=== PATIENT | female | born 1975 | race Caucasian/White ===

== ENCOUNTER 2017-04-15 17:39 | Emergency (ER) | payer MEDICAID, OTHER ==
[~2017-04-15] VITALS: Ht 147.3 cm; Wt 90.5 kg
[~2017-04-15 17:39] MED LIST: FERR240T9 PO; PREN-39 PO
[2017-04-15 18:29] VITALS: Ht 147.3 cm; Wt 90.5 kg
[2017-04-15] MEDS ORDERED: HYDROCODONE/APAP (5/325) TAB PO ONE (21:00)
--- NOTE | 2017-04-15 21:40 | ERD ---
ER Documentation Chief Complaint Date/Time DATE: 04/15/17 TIME: 21:37 Chief Complaint Left foot/leg pain & swelling when standing for long periods of times HPI 42-year-old female presents here to emergency department for complaints of left foot pain for months now, describes the pain as sharp pain, 6/10 scale, not better or worse with anything. Patient also started to have left lower leg swelling, With anything. Patient denies any numbness or tingling. Patient denies any deformity. Patient denies any trauma. ROS All systems reviewed and are negative except as per history of present illness. Medications Home Meds Reported Medications Ferrous Gluconate (Iron) 1 Tab Tablet, 1 TAB PO BID, TAB 01/29/16 Vits W-Ca,Fe,Fa(<1MG) ( Vitamins) 1 Tab Tablet, 1 TAB PO DAILY , TAB 01/29/16 Allergies Allergies: Coded Allergies: Tetracyclines (Verified Allergy, Unknown, 03/11/16) RASH PMhx/Soc History of Surgery: Yes (,Appy,Cholecystectomy) Anesthesia Reaction: No Hx Neurological Disorder: No Hx Respiratory Disorders: No Hx Cardiac Disorders: No Hx Psychiatric Problems: No Hx Miscellaneous Medical Probl: Yes (Gallstones) Hx Alcohol Use: No Hx Substance Use: No Hx Tobacco Use: No Smoking Status: Never smoker FmHx Family History: No coronary disease, No diabetes, No other Physical Exam Vitals Vital Signs Date Time Temp Pulse Resp B/P Pulse Ox O2 Delivery O2 Flow Rate FiO2 04/15/17 18:29 99.2 78 20 132/84 97 Physical Exam GENERAL: The patient is well developed and appropriate for usual state of health, in no apparent distress. CHEST: Clear to auscultation bilaterally. There are no rales, wheezes or rhonchi. HEART: Regular rate and rhythm. No murmurs, clicks, rubs or gallops. No S3 or S4. ABDOMEN: Soft, nontender and nondistended. Good bowel sounds. No rebound or guarding. No gross peritonitis. No gross organomegaly or masses. No Good sign or McBurney point tenderness. BACK: No midline or flank tenderness. EXTREMITIES: There is some swelling in the left lower leg, no Homans sign noted , able to do full range of motion of left foot without any restriction. Equal pulses bilaterally. There is no peripheral clubbing, cyanosis or edema. No focal swelling or erythema. Full range of motion. Grossly neurovascularly intact. NEURO: Alert and oriented. Cranial nerves 2-12 intact. Motor strength in all 4 extremities with 5/5 strength. Sensation grossly intact. Normal speech and gait. SKIN: There is no apparent rash or petechia. The skin is warm and dry. HEMATOLOGIC AND LYMPHATIC: There is no evidence of excessive bruising or lymphedema. No gross cervical, axillary, or inguinal lymphadenopathy. Results 24 hrs Current Medications Medications (Trade) Dose Ordered Sig/Nenita Route PRN Reason Start Time Stop Time Status Last Admin Dose Admin Acetaminophen/ Hydrocodone Bitart (Jay (5/325)) 1 tab ONCE ONCE PO 04/15/17 21:00 04/15/17 21:01 DC 04/15/17 21:34 Patient was given medication for pain here in emergency department, after treatment, patient verbalized feeling much better. Patient's pain is improved. PROCEDURE: XR Left Foot. CLINICAL INDICATION: Left foot pain TECHNIQUE: AP, lateral and oblique views of the left foot was obtained. The images were reviewed on a PACS workstation. COMPARISON: None. FINDINGS: The bones of the foot appear intact, with no evidence of fracture, dislocation, or subluxation. The joint spaces are preserved. The bone mineralization is normal. No significant soft tissue swelling is seen. Plantar and posterior dorsal calcaneal enthesophytes. IMPRESSION: Unremarkable left foot radiographs. RPTAT: [facility] Physician Boubacar Date Time Electronically viewed and signed by Physician Boubacar on 04/15/2017 21:48 RS/ CC: JOSEPH POWERS CONVEYOR BELT OPERATOR Procedures/MDM Medical Decision Making: Patient's foot pain nonspecific at this time, can be from a sprain, there is also some calcaneal arthritic changes noted most likely can be causing the pain. No DVT noted. There is no suspicion for neurovascular compromise. Patient has intact sensation and circulation of the affected extremity. There is low suspicion for septic arthritis. Patient does not have any fever. Radiology exams of the affected area does not show any fracture or dislocation. Disposition: Home. Patient is given prescription for ibuprofen for pain, Jay for severe pain. Patient was advised to elevate the affected area and apply ice on affected area. Patient was advised that if symptoms are worse, numbness, tingling, high fever, unable to move joint, worsening symptoms, to return to emergency department immediately. Otherwise, patient is advised to follow up with the primary care doctor in 5-7 days for reevaluation of symptoms. Disclaimer: Inadvertent spelling and grammatical errors are likely due to EHR/ dictation software use and do not reflect on the overall quality of patient care. Also, please note that the electronic time recorded on this note does not necessarily reflect the actual time of the patient encounter. Departure Diagnosis: Primary Impression: Foot pain Laterality: left Qualified Code: M79.672 - Left foot pain Additional Impression: Leg pain Laterality: left Qualified Code: M79.605 - Pain of left lower extremity Condition: Stable Patient Instructions: Sprain Foot Additional Instructions: Patient is given prescription for ibuprofen for pain, Jay for severe pain. Patient was advised to elevate the affected area and apply ice on affected area. Patient was advised that if symptoms are worse, numbness, tingling, high fever, unable to move joint, worsening symptoms, to return to emergency department immediately. Otherwise, patient is advised to follow up with the primary care doctor in 5-7 days for reevaluation of symptoms. JOSEPH POWERS NP Apr 15, 2017 21:40
--- NOTE | 2017-04-15 21:48 | RADRPT ---
PROCEDURE: XR Left Foot. CLINICAL INDICATION: Left foot pain TECHNIQUE: AP, lateral and oblique views of the left foot was obtained. The images were reviewed on a PACS workstation. COMPARISON: None. FINDINGS: The bones of the foot appear intact, with no evidence of fracture, dislocation, or subluxation. The joint spaces are preserved. The bone mineralization is normal. No significant soft tissue swelling is seen. Plantar and posterior dorsal calcaneal enthesophytes. IMPRESSION: Unremarkable left foot radiographs. RPTAT: [facility] Physician Boubacar Date Time Electronically viewed and signed by Physician Boubacar on 04/15/2017 21:48 RS/
--- NOTE | 2017-04-15 21:56 | RADRPT ---
PROCEDURE: US venous left lower extremity CLINICAL INDICATION: Left calf pain and swelling. TECHNIQUE: Multiple longitudinal and transverse images of the left lower extremity veins were obtai durga with beasley scale and color Doppler imaging. The calf veins were interrogated as well. COMPARISON: None available. FINDINGS: Common femoral vein: Normal flow. Compressible and augmentable. Proximal superficial femoral vein: Normal flow. Compressible and augmentable. Mid superficial femoral vein: Normal flow. Compressible and augmentable. Distal superficial femoral vein: Normal flow. Compressible and augmentable. Popliteal vein: Normal flow. Compressible and augmentable. Calf veins: Normal flow. IMPRESSION: 1. No evidence of a deep vein thrombosis within the left lower extremity. RPTAT: [facility] .Rambo Schaeffer MD, MD Date Time Electronically viewed and signed by .Rambo Schaeffer MD, MD on 04/15/2017 21:55 .P/
[2017-04-15] MEDS ORDERED: IBUP-1542 PO (22:13)
[2017-04-15] MEDS ORDERED: HYDR-906 PO (22:13)
== END 2017-04-15 22:30 | disposition home or self-care (01) ==
LOC: FTE 17:39
DX: M79.672 Pain in left foot (principal); M79.605 Pain in left leg
CPT/HCPCS: 73630; 93971; Z7610

== ENCOUNTER 2018-01-26 20:24 | Outpatient (CLI) | END 2018-01-27 01:10 | disposition home or self-care (01) ==

== ENCOUNTER 2018-02-02 19:19 | Outpatient (CLI) | END 2018-02-02 22:20 | disposition home or self-care (01) ==

== ENCOUNTER 2018-02-09 21:02 | Inpatient (IN) | END 2018-02-27 16:55 | disposition home or self-care (01) | DRG 766 ==

== ENCOUNTER 2018-03-27 15:54 | Emergency (ER) | END 2018-03-27 20:30 | disposition home or self-care (01) ==